=== PATIENT | male | born 1985 | race Caucasian/White ===

== ENCOUNTER 2018-07-19 13:27 | Emergency (ER) | payer OTHER ==
[~2018-07-19] VITALS: Ht 172.7 cm; Wt 110.2 kg
[~2018-07-19 13:27] MED LIST: CARAFATE 1 GM TA1 GM PO; NORCO 10-325 T1 EACH; PREVACID30 MG PO; VALIUM5 MG; VENLAFAXINE HCL75 MG
[2018-07-19] MEDS ORDERED: BUSPIRONE HCL10 MG PO (13:44)
[2018-07-19] MEDS ORDERED: PAXIL10 MG PO (13:44)
[2018-07-19] MEDS ORDERED: CYCLOBENZAPRINE15 M1 PO (13:44)
[2018-07-19] MEDS ORDERED: AMITRIPTYLINE H10 M3 PO (13:45)
[2018-07-19] MEDS ORDERED: GEMFIBROZIL 60600 MG PO (13:47)
[2018-07-19 14:20] LABS: ABSOLUTE BASOPHILS 0.2 thou/uL (0.0-0.2); ABSOLUTE EOSINOPHILS 0.1 thou/uL (0.0-0.7); ABSOLUTE LYMPHOCYTES 3.3 thou/uL (0.8-5.3); ABSOLUTE MONOCYTES 1.2 thou/uL (0.0-1.2); ABSOLUTE NEUTROPHILS 9.4 thou/uL (1.6-8.1); BASOPHILS 1.1 %; EOSINOPHILS 0.8 %; HEMATOCRIT 48.9 % (42.0-52.0); HEMOGLOBIN 16.7 gm/dL (14.0-18.0); LYMPHOCYTES 23.1 %; MCH 29.6 pg (26.0-34.0); MCHC 34.1 g/dL (28.0-37.0); MCV 86.7 fL (80.0-100.0); MONOCYTES 8.5 %; MPV 9.6 fl. (7.2-11.1); NUCLEATED RBCS 0 /100WBC; PLATELET COUNT* 305 thou/uL (150-400); POLYS 66.5 %; RBC 5.64 mil/uL (4.50-6.00); RDW-CV 13.2 % (10.5-14.5); WBC 14.2 thou/uL (4.0-11.0)
[2018-07-19 14:29] LABS: ALBUMIN 4.1 g/dL (3.4-5.0); CALCIUM 9.2 mg/dL (8.5-10.1); POTASSIUM 3.8 mmol/L (3.5-5.1); TOTAL BILIRUBIN 0.7 mg/dL (<0.1-1.0); TOTAL PROTEIN 8.6 g/dL (6.4-8.2)
[2018-07-19] MEDS ORDERED: KEFLEX500 M1 PO (14:55)
[2018-07-19] MEDS ORDERED: CIPRODEX OTIC7.5 ML OTIC (14:55)
[2018-07-19] MEDS ORDERED: NORCO 5-325 TA1 EACH PO (14:55)
[2018-07-19] MEDS ORDERED: TRAMADOL 50 MG50 MG PO (14:58)
[2018-07-19 15:25] VITALS: BP 128/80
== END 2018-07-19 15:29 | disposition home or self-care (01) ==
LOC: M.ERS 13:27
PROVIDERS: Nurse Practitioner Family
DX: H60.91 Unspecified otitis externa, right ear (principal); R59.0 Localized enlarged lymph nodes; Z88.0 Allergy status to penicillin

== ENCOUNTER → 2019-10-01 | Emergency (ER) | payer OTHER ==
[~2019-10-01] VITALS: Ht 172.7 cm; Wt 103.4 kg
[~2019-10-01] MED LIST changes: +AMITRIPTYLINE H10 M3 PO; +BUSPIRONE HCL10 MG PO; +CIPRODEX OTIC7.5 ML OTIC; +CYCLOBENZAPRINE15 M1 PO; +GEMFIBROZIL 60600 MG PO; +KEFLEX500 M1 PO; +MEDROLDOSEPACK PO; +MUSCLE RELAXANT; +NORCO 5-325 TA1 EACH PO; +PAXIL10 MG PO; +TOPAMAX100 MG PO; +TRAMADOL 50 MG50 MG PO
[2019-10-01 09:25] VITALS: BP 146/86
== END ==
LOC: M.ERS 07:51
DX: H60.92 Unspecified otitis externa, left ear (principal); F17.210 Nicotine dependence, cigarettes, uncomplicated; G43.909 Migraine, unspecified, not intractable, without status migrainosus; R59.1 Generalized enlarged lymph nodes; E78.5 Hyperlipidemia, unspecified; Z79.899 Other long term (current) drug therapy; Z88.0 Allergy status to penicillin

== ENCOUNTER 2021-02-23 02:23 | Emergency (ER) | payer OTHER, BC ==
[~2021-02-23] VITALS: Ht 172.7 cm; Wt 106.6 kg
[2021-02-23] MEDS ORDERED: ZOFRAN ODT4 MG PO (04:31)
[2021-02-23] MEDS ORDERED: PERCOCET 10-321 EAC1 PO (04:31)
[2021-02-23 04:44] VITALS: BP 129/88
== END 2021-02-23 04:45 | disposition home or self-care (01) ==
LOC: M.ERS 02:23
DX: N13.2 Hydronephrosis with renal and ureteral calculous obstruction (principal); G43.909 Migraine, unspecified, not intractable, without status migrainosus; E78.5 Hyperlipidemia, unspecified; Z86.73 Personal history of transient ischemic attack (TIA), and cerebral infarction without residual deficits; Z79.899 Other long term (current) drug therapy; Z88.0 Allergy status to penicillin